=== PATIENT | female | born 1995 | race Caucasian/White ===

== ENCOUNTER 2017-10-22 14:05 | Outpatient (CLI) | payer BC ==
--- NOTE | 2017-10-22 15:38 | CT ---
CT INTERNAL AUDITORY CANALS AND TEMPORAL BONES: Date: 10/22/17 HISTORY: Unspecified perforation of tympanic membrane, right ear conductive hearing loss. Unrestricted hearing on the contralateral side. COMPARISON: None. TECHNIQUE: CT IACs/temporal bones performed in axial plane. Coronal reformatted images submitted for interpretat ion. FINDINGS: Visualized brain parenchyma is grossly unremarkable. Bilateral ocular lenses are appropriately located. Both globes are intact. Retrobulbar fat is preserv ed. There is mild mucosal thickening involving the ethmoid air cells. Adequate frontal sinus aeration. Th ere is mild mucosal thickening involving bilateral maxillary sinuses. Adequate sphenoid air cell aera tion. Right IAC/Temporal Bone: The internal auditory canal, cochlea, vestibule, and semicircular canals have an appropriate appearan ce and configuration. Vestibular aqueduct is not enlarged. There is adequate aeration of the middle e ar. Ossicular chain is intact and the stapedial footplate is appropriately located. Scutum is sharp. No abnormal hypodensities in Prussak's space. Tegmen tympani and tegmen mastoideum are preserved. Tess quate aeration of the mastoid air cells. Intraosseous septae are preserved. There is minimal retracti on of the right tympanic membrane with a possible defect. External auditory canal is patent. Left IAC/Temporal Bone: The internal auditory canal, cochlea, vestibule, and semicircular canals have an appropriate appearan ce and configuration. Vestibular aqueduct is not enlarged. There is adequate aeration of the middle e ar. Ossicular chain is intact and the stapedial footplate is appropriately located. Scutum is sharp. No abnormal hypodensities in Prussak's space. Tegmen tympani and tegmen mastoideum are preserved. Tess quate aeration of the mastoid air cells. Intraosseous septae in mastoid air cells are preserved. Tymp anic membrane is unremarkable. External auditory canal is unremarkable. IMPRESSION: Minimal retraction of the right tympanic membrane with evidence of a defect. Otherwise, unremarkable exam. POS: [facility] [place]
== END 2017-10-22 14:06 | disposition home or self-care (01) ==
LOC: SCSCT 14:05
PROVIDERS: ATTEND Otolaryngology Plastic Surgery within the Head & Neck
DX: H72.91 Unspecified perforation of tympanic membrane, right ear (principal); H90.11 Conductive hearing loss, unilateral, right ear, with unrestricted hearing on the contralateral side; H69.81 Other specified disorders of Eustachian tube, right ear
CPT/HCPCS: 70480